=== PATIENT | female | born 1970 ===

== ENCOUNTER 2016-11-15 12:06 | Observation (INO) | payer MEDICAID ==
[2016-11-15 12:07] VITALS: BMI 32.8
--- NOTE | 2016-11-15 13:06 | ED PDOC ---
HPI: Chest Pain Time Seen by Provider: 11/15/16 12:22 Chief Complaint (Nursing): Chest Pain Chief Complaint (Provider): Chest Pain History Per: Patient History/Exam Limitations: no limitations Onset/Duration Of Symptoms: Hrs Current Symptoms Are (Timing): Still Present Severity: Mild Quality: Pressure, "Pain" Associated Symptoms: Dyspnea Modifying Factors: None Exacerbating Factors: None Alleviating Factors: None Additional Complaint(s): Patient is a 46 year old female with a history of HTN and CAD, presents to ED for evaluation of chest pain that began at 8pm. Patient is described as constant , anterior and left sided with SOB. Patient also reports upper back pain and headache that developed this morning with a mild dry cough. Denies leg swelling , palpations, dizziness or numbness. PMD: Past Medical History Reviewed: Historical Data, Nursing Documentation, Vital Signs Vital Signs: Last Vital Signs Temp Pulse 95 H 11/15/16 15:05 Resp 21 11/15/16 12:29 BP 128/71 11/15/16 12:29 Pulse Ox 100 11/15/16 15:05 - Medical History PMH: HTN Denies: Chronic Kidney Disease - Surgical History Surgical History: No Surg Hx - Family History Family History: States: Unknown Family Hx - Living Arrangements Living Arrangements: With Family - Home Medications Home Medications: Ambulatory Orders Medication Instructions Recorded amLODIPine [Norvasc] 10 mg PO DAILY 02/01/15 Alprazolam [Xanax] 1 tab PO PRN PRN 11/15/16 Aspirin [Aspirin Chewable] 1 tab PO DAILY 11/15/16 - Allergies Allergies/Adverse Reactions: Allergies Allergy/AdvReac Type Severity Reaction Status Date / Time No Known Allergies Allergy Verified 06/04/16 09:32 NISHI Risk Score for UA/NSTEMI - NISHI Risk Score Age > 64: NO 3 or more CAD Risk Factors: YES Known CAD (Stenosis greater than 50%): NO Aspirin use in past 7 days: YES Severe Angina: NO EKG ST changes greater than 0.5mm: NO Positive Cardiac Marker: NO NISHI Score: 2 Risk %: 8% Review of Systems ROS Statement: Except As Marked, All Systems Reviewed And Found Negative Constitutional: Negative for: Fever, Chills Cardiovascular: Positive for: Chest Pain Respiratory: Positive for: Cough, Shortness of Breath Gastrointestinal: Positive for: Nausea. Negative for: Vomiting Musculoskeletal: Positive for: Back Pain. Negative for: Neck Pain, Leg Pain Neurological: Positive for: Headache. Negative for: Weakness, Numbness, Dizziness Physical Exam - Reviewed Nursing Documentation Reviewed: Yes Vital Signs Reviewed: Yes - Physical Exam Appears: Positive for: Non-toxic, No Acute Distress Skin: Positive for: Normal Color, Warm Eye Exam: Positive for: Normal appearance, PERRL Neck: Positive for: Normal, Painless ROM Cardiovascular/Chest: Positive for: Regular Rate, Rhythm. Negative for: Chest Non Tender (mild left chest wall tenderness ), Murmur Respiratory: Positive for: Normal Breath Sounds. Negative for: Respiratory Distress Back: Positive for: Normal Inspection Extremity: Positive for: Normal ROM. Negative for: Pedal Edema, Calf Tenderness Neurologic/Psych: Positive for: Alert, Oriented. Negative for: Motor/Sensory Deficits - Laboratory Results Result Diagrams: 11/15/16 12:45 11/15/16 12:45 - ECG ECG: Positive for: Interpreted By Me, Viewed By Me ECG Rhythm: Positive for: Normal QRS, Normal ST Segment, Sinus Rhythm. Negative for: ST/T Changes Rate: 95 O2 Sat by Pulse Oximetry: 100 (RA) Pulse Ox Interpretation: Normal Medical Decision Making Medical Decision Making: Time: 1300 Initial impression: Chest pain r/o ACS Initial plan: Previous charts reviewed: History of NSTEMI with normal Cath by Dr. Bridges on February 02, 2016 -- EKG -- BMP -- Troponin -- CBC -- CXR -- ASA -- Cardiac Time:1500 Patient to be signed out to Dr. Lamas pending work up Scribe Attestation: Documented by Josette Muhammad acting as a scribe for Piper sOhea MD MD Scribe Attestation: All medical record entries made by the Scribe were at my direction and personally dictated by me. I have reviewed the chart and agree that the record accurately reflects my personal performance of the history, physical exam, medical decision making, and the department course for this patient. I have also personally directed, reviewed, and agree with the discharge instructions and disposition. Disposition - Clinical Impression Clinical Impression: Chest pain - Patient ED Disposition Is Patient to be Admitted: Transfer of Care - Disposition Disposition: Transfer of Care Disposition Time: 15:00 Condition: STABLE Patient Signed Over To: Everton Lamas Y Handoff Comments: pending CT chest.
[2016-11-15 13:13] LABS: BASO # 0.1 K/uL (0.0-0.2); EOS # 0.3 K/uL (0.0-0.7); EOS % 3.9 % (0.0-4.0); HEMATOCRIT 41.1 % (34.0-47.0); LYMPH # 2.7 K/uL (1.0-4.3); LYMPH % 36.7 % (20.0-40.0); MEAN CELL VOLUME 80.9 fl (81.0-99.0); MEAN CORPUSCULAR HEMOGLOBIN 26.1 pg (27.0-31.0); MEAN CORPUSCULAR HGB CONC 32.3 g/dL (33.0-37.0); MEAN PLATELET VOLUME 10.2 fl (7.2-11.7); MONO # 0.5 K/uL (0.0-0.8); MONO % 6.3 % (0.0-10.0); NEUT # 3.8 K/uL (1.8-7.0); NEUT % 52.1 % (50.0-75.0); NRBC % 0.1 % (0.0-0.0); RED CELL DISTRIBUTION WIDTH 14.3 % (11.5-14.5); WHITE BLOOD COUNT 7.3 K/uL (4.8-10.8)
[2016-11-15 13:23] LABS: BLOOD UREA NITROGEN 16 mg/dl (7-17); CALCIUM 9.7 mg/dL (8.4-10.2); CARBON DIOXIDE 26 mmol/L (22-30); CHLORIDE 101 mmol/L (98-107); GFR AFRICAN-AMERICAN > 60; GLUCOSE,RANDOM 176 mg/dL (65-105); SODIUM 142 mmol/l (132-148)
--- NOTE | 2016-11-15 13:32 | RAD ---
PROCEDURE: CHEST RADIOGRAPH, 1 VIEW HISTORY: Chest pain COMPARISON: 01/20/2016 FINDINGS: LUNGS: The lungs are clear. PLEURA: No pneumothorax or pleural fluid seen. CARDIOVASCULAR: Normal. OSSEOUS STRUCTURES: No significant abnormalities. VISUALIZED UPPER ABDOMEN: Normal. OTHER FINDINGS: None. IMPRESSION: No active pulmonary disease.
--- NOTE | 2016-11-15 15:41 | ED PDOC ---
- Laboratory Results Result Diagrams: 11/15/16 12:45 11/15/16 12:45 - ECG O2 Sat by Pulse Oximetry: 100 (RA) Medical Decision Making Medical Decision Makin:00 Patient signed out by Dr. Oshea pending CT and admission . 17:[address] Mohr, who is covering for Dr Guajardo, for admission. CT Scan r/o Dissection FINDINGS: CT ANGIOGRAPHY OF THE CHEST WITH & WITHOUT CONTRAST: AORTA (CHEST AND ABDOMEN): The thoracic and abdominal aorta are unremarkable, without aneurysm, dissection or rupture. No intramural thrombus identified in the thoracic aorta on the non-contrast ct of the chest. The celiac axis, superior mesenteric artery, inferior mesenteric artery and the renal arteries are widely patent. The pelvic arteries are unremarkable. LUNGS: Clear. No nodule, mass or consolidation. MEDIASTINUM: Unremarkable. Normal caliber aorta and pulmonary arterial trunk. No aortic dissection. Normal size heart. LYMPH NODES: Unremarkable. PLEURA: Unremarkable. No pneumothorax. No pleural fluid. BONES: Unremarkable. OTHER FINDINGS: None. CT ANGIOGRAPHY OF THE ABDOMEN AND PELVIS WITH CONTRAST: LIVER: Mild hepatomegaly with findings suggestive of moderate to mildly severe hepatic steatosis. GALLBLADDER AND BILE DUCTS: Unremarkable. PANCREAS: Unremarkable. No gross lesion or ductal dilatation. SPLEEN: Unremarkable. ADRENALS: Unremarkable. No mass. KIDNEYS AND URETERS: Unremarkable. No hydronephrosis. No solid mass. VASCULATURE: Unremarkable. No aortic aneurysm. STOMACH AND BOWEL: Unremarkable. No obstruction. No gross mural thickening. Mild constipation is noted APPENDIX: Normal appendix. PERITONEUM: Unremarkable. No free fluid. No free air. LYMPH NODES: Unremarkable. No enlarged lymph nodes. BLADDER: Unremarkable. REPRODUCTIVE: Unremarkable. BONES: No acute fracture. OTHER FINDINGS: None. IMPRESSION: No evidence of artery dissection. No evidence of aneurysm. No CT evidence of acute pathology in the chest abdomen and pelvis. Hepatomegaly associated with moderate steatosis. Scattered colonic diverticulosis seen without evidence of diverticulitis. 18:[address] Mohr, agreed to admit patient for cp. pt states cp has mostly resolved Scribe Attestation: Documented by Josette Muhammad acting as a scribe for Everton Lamas MD MD Scribe Attestation: All medical record entries made by the Scribe were at my direction and personally dictated by me. I have reviewed the chart and agree that the record accurately reflects my personal performance of the history, physical exam, medical decision making, and the department course for this patient. I have also personally directed, reviewed, and agree with the discharge instructions and disposition. Disposition Discussed With : Wilian Mohr Counseled Patient/Family Regarding: Studies Performed, Diagnosis - Clinical Impression Clinical Impression: Chest pain - POA Present On Arrival: None - Disposition Disposition: Admitted as In-Patient Disposition Time: 18:00 Condition: STABLE
[2016-11-15] MEDS ORDERED: Sodium Chloride 0.9% 50 ML IV ONE (15:59)
[2016-11-15] MEDS ORDERED: Iodixanol 320 MG/ML 100 ML BOTTLE IV ONE (15:59)
--- NOTE | 2016-11-15 17:14 | CT ---
PROCEDURE: CT Angiography Chest, Abdomen and Pelvis with and without intravenous contrast HISTORY: chest back pain COMPARISON: None. TECHNIQUE: Contiguous axial images of the chest, abdomen and pelvis were obtained in the phase of aortic enhancement. A noncontrast enhanced CT of the chest was also obtained to evaluate for possible intramural thrombus. Coronal and sagittal reformats were generated. This CT exam was performed using one or more of the following dose reduction techniques: Automated exposure control, adjustment of the mA and/or kV according to patient size, and/or use of the iterative reconstruction technique. IV dose administered: 95 mL Visipaque 320 Radiation dose: Total exam DLP = 1717.99 mGy-cm. FINDINGS: CT ANGIOGRAPHY OF THE CHEST WITH & WITHOUT CONTRAST: AORTA (CHEST AND ABDOMEN): The thoracic and abdominal aorta are unremarkable, without aneurysm, dissection or rupture. No intramural thrombus identified in the thoracic aorta on the non-contrast ct of the chest. The celiac axis, superior mesenteric artery, inferior mesenteric artery and the renal arteries are widely patent. The pelvic arteries are unremarkable. LUNGS: Clear. No nodule, mass or consolidation. MEDIASTINUM: Unremarkable. Normal caliber aorta and pulmonary arterial trunk. No aortic dissection. Normal size heart. LYMPH NODES: Unremarkable. PLEURA: Unremarkable. No pneumothorax. No pleural fluid. BONES: Unremarkable. OTHER FINDINGS: None. CT ANGIOGRAPHY OF THE ABDOMEN AND PELVIS WITH CONTRAST: LIVER: Mild hepatomegaly with findings suggestive of moderate to mildly severe hepatic steatosis. GALLBLADDER AND BILE DUCTS: Unremarkable. PANCREAS: Unremarkable. No gross lesion or ductal dilatation. SPLEEN: Unremarkable. ADRENALS: Unremarkable. No mass. KIDNEYS AND URETERS: Unremarkable. No hydronephrosis. No solid mass. VASCULATURE: Unremarkable. No aortic aneurysm. STOMACH AND BOWEL: Unremarkable. No obstruction. No gross mural thickening. Mild constipation is noted APPENDIX: Normal appendix. PERITONEUM: Unremarkable. No free fluid. No free air. LYMPH NODES: Unremarkable. No enlarged lymph nodes. BLADDER: Unremarkable. REPRODUCTIVE: Unremarkable. BONES: No acute fracture. OTHER FINDINGS: None. IMPRESSION: No evidence of artery dissection. No evidence of aneurysm. No CT evidence of acute pathology in the chest abdomen and pelvis. Hepatomegaly associated with moderate steatosis. Scattered colonic diverticulosis seen without evidence of diverticulitis.
--- NOTE | 2016-11-15 17:59 | CARD ---
APPROVED REPORT EKG Measurement Heart [id number] <Conclusion> Sinus rhythm with occasional premature ventricular complexes Otherwise normal ECG
[2016-11-15] MEDS ORDERED: Nitroglycerin 2% 15 INCH/30 GM TUBE TOP PRN ×2 (23:13→23:41)
[2016-11-16] MEDS ORDERED: Pneumococcal 23-Valent Vaccine IM ONE (09:00)
--- NOTE | 2016-11-16 14:04 | CP.PCM.DIS ---
Provider - Provider Date of Admission: 11/15/16 18:14 Attending physician: Wilian Mohr MD Time Spent in preparation of Discharge (in minutes): 20 Diagnosis - Discharge Diagnosis (1) Chest pain Status: Acute Hospital Course - Lab Results Lab Results: Most Recent Lab Values WBC 7.3 K/uL (4.8-10.8) 11/15/16 12:45 RBC 5.08 Mil/uL (3.80-5.20) 11/15/16 12:45 Hgb 13.3 g/dL (12.0-16.0) 11/15/16 12:45 Hct 41.1 % (34.0-47.0) 11/15/16 12:45 MCV 80.9 fl (81.0-99.0) L 11/15/16 12:45 MCH 26.1 pg (27.0-31.0) L 11/15/16 12:45 MCHC 32.3 g/dL (33.0-37.0) L 11/15/16 12:45 RDW 14.3 % (11.5-14.5) 11/15/16 12:45 Plt Count 216 K/uL (130-400) 11/15/16 12:45 MPV 10.2 fl (7.2-11.7) 11/15/16 12:45 Neut % (Auto) 52.1 % (50.0-75.0) 11/15/16 12:45 Lymph % (Auto) 36.7 % (20.0-40.0) 11/15/16 12:45 Luce % (Auto) 6.3 % (0.0-10.0) 11/15/16 12:45 Eos % (Auto) 3.9 % (0.0-4.0) 11/15/16 12:45 Baso % (Auto) 1.0 % (0.0-2.0) 11/15/16 12:45 Neut # 3.8 K/uL (1.8-7.0) 11/15/16 12:45 Lymph # 2.7 K/uL (1.0-4.3) 11/15/16 12:45 Luce # 0.5 K/uL (0.0-0.8) 11/15/16 12:45 Eos # 0.3 K/uL (0.0-0.7) 11/15/16 12:45 Baso # 0.1 K/uL (0.0-0.2) 11/15/16 12:45 Sodium 142 mmol/l (132-148) 11/15/16 12:45 Potassium 4.0 MMOL/L (3.6-5.0) 11/15/16 12:45 Chloride 101 mmol/L (98-107) 11/15/16 12:45 Carbon Dioxide 26 mmol/L (22-30) 11/15/16 12:45 Anion Gap 19 (10-20) 11/15/16 12:45 BUN 16 mg/dl (7-17) 11/15/16 12:45 Creatinine 0.7 mg/dL (0.7-1.2) 11/15/16 12:45 Est GFR ( Amer) > 60 11/15/16 12:45 Est GFR (Non-Af Amer) > 60 11/15/16 12:45 Random Glucose 176 mg/dL (65-105) H 11/15/16 12:45 Calcium 9.7 mg/dL (8.4-10.2) 11/15/16 12:45 Troponin I 0.0130 ng/mL (0.00-0.120) 11/16/16 06:25 - Hospital Course Hospital Course: Pt was admitted for observation for chest pain, cardiac enzymes negative. chest pain resolved. talked with pt she will need outpatient stress test; script given to her and she will obtain a referral from her PCP to get the test. will follow up with her PCP in 1-2weeks Discharge Exam - Head Exam Head Exam: NORMOCEPHALIC - Eye Exam Eye Exam: Normal appearance - Respiratory Exam Respiratory Exam: NORMAL BREATHING PATTERN - Cardiovascular Exam Cardiovascular Exam: REGULAR RHYTHM, +S1, +S2 - GI/Abdominal Exam GI & Abdominal Exam: Normal Bowel Sounds, Soft - Extremities Exam Extremities exam: full ROM, normal inspection - Neurological Exam Neurological exam: Alert, CN II-XII Intact, Oriented x3 - Skin Skin Exam: Normal Color Discharge Plan - Follow Up Plan Condition: STABLE Disposition: HOME/ ROUTINE Instructions: Cardiac Stress Test (GEN), Chest Pain (GEN) Additional Instructions: Please follow up with your PCP for referral for stress test
--- NOTE | 2016-11-16 14:06 | CP.PCM.HP ---
History of Present Illness - History of Present Illness History of Present Illness: Pt is a 46 year old female with a history of HTN and CAD, presents to ED for evaluation of chest pain that began at 8pm the night before Patient is described as constant, anterior and left sided with SOB. Patient also reports upper back pain and headache that developed this morning with a mild dry cough. Denies leg swelling, palpations, dizziness or numbness. Pt seen and examined at bedside, chest pain has now resolved, feels a lot comfortable does not have any complaints Present on Admission - Present on Admission Any Indicators Present on Admission: No Review of Systems - Review of Systems All systems: reviewed and no additional remarkable complaints except Review of Systems: Per HPI Past Patient History - Infectious Disease Hx of Infectious Diseases: None - Past Medical History & Family History Past Medical History?: Yes - Past Social History Smoking Status: Never Smoked - CARDIAC Hx Hypertension: Yes - PULMONARY Hx Respiratory Disorders: No - NEUROLOGICAL Hx Neurological Disorder: No - HEENT Hx HEENT Problems: No - RENAL Hx Chronic Kidney Disease: No - ENDOCRINE/METABOLIC Hx Endocrine Disorders: No - HEMATOLOGICAL/ONCOLOGICAL Hx Blood Disorders: No Hx AIDS: No Hx Human Immunodeficiency Virus (HIV): No - INTEGUMENTARY Hx Dermatological Problems: No - MUSCULOSKELETAL/RHEUMATOLOGICAL Hx Falls: No - GASTROINTESTINAL Hx Gastrointestinal Disorders: No - GENITOURINARY/GYNECOLOGICAL Hx Genitourinary Disorders: No - PSYCHIATRIC Hx Anxiety: Yes Hx Substance Use: No - SURGICAL HISTORY Hx Surgeries: Yes Hx Tubal Ligation: Yes Other/Comment: left shoulder surgery - ANESTHESIA Hx Anesthesia: Yes Hx Anesthesia Reactions: No Meds Allergies/Adverse Reactions: Allergies Allergy/AdvReac Type Severity Reaction Status Date / Time No Known Allergies Allergy Verified 06/04/16 09:32 Physical Exam - Constitutional Appears: Non-toxic, No Acute Distress - Head Exam Head Exam: NORMOCEPHALIC - Eye Exam Eye Exam: Normal appearance - ENT Exam ENT Exam: Mucous Membranes Moist - Respiratory Exam Respiratory Exam: Clear to Auscultation Bilateral, NORMAL BREATHING PATTERN - Cardiovascular Exam Cardiovascular Exam: REGULAR RHYTHM, +S1, +S2 - GI/Abdominal Exam GI & Abdominal Exam: Normal Bowel Sounds, Soft - Extremities Exam Extremities exam: Positive for: normal inspection - Skin Skin Exam: Normal Color Results - Vital Signs Recent Vital Signs: Last Vital Signs Temp 98.2 F 11/16/16 08:00 Pulse 76 11/16/16 09:00 Resp 20 11/16/16 08:00 BP 120/77 11/16/16 08:54 Pulse Ox 98 11/16/16 08:00 - Labs Result Diagrams: 11/15/16 12:45 11/15/16 12:45 Labs: Laboratory Results - last 24 hr 11/15/16 11/16/16 23:14 06:25 Troponin I < 0.0120 0.0130 Assessment & Plan (1) Chest pain Status: Acute - Assessment and Plan (Free Text) Assessment: Pt is a 46 y/o female with cardiac risk factor admitted for observation chest pain rule out ACS Plan: Chest pain rule out ACS 1 trops negative ; f/u up x2 continue aspirin pain mangement resume home meds heart healthy diet lovenox 40mg daily
[2016-11-16 14:48] VITALS: BP 110/73; PULSE 66; RESP 18; TEMP 97.9; O2SAT 97
== END 2016-11-16 15:20 | disposition home or self-care (01) ==
LOC: H.ER 12:06 → H.ERHOLD 18:14 → H.TEL 20:38
PROVIDERS: ADMIT Family Medicine; ATTEND Family Medicine
DX: R07.9 Chest pain, unspecified (principal); I10 Essential (primary) hypertension

== ENCOUNTER 2017-05-14 10:29 | Emergency (ER) | payer MEDICAID ==
[2017-05-14 11:06] VITALS: BMI 34.4
--- NOTE | 2017-05-14 12:46 | ED PDOC ---
HPI: Female Pain Time Seen by Provider: 05/14/17 11:40 Chief Complaint (Nursing): Abdominal Pain Chief Complaint (Provider): vaginal bleeding History Per: Patient History/Exam Limitations: no limitations Onset/Duration Of Symptoms: Days (x20) Additional Complaint(s): Sherry Cobian is a 47 year old female with previous medical history of hypertension and diabetes, who presents to the emergency department with a complaint of vaginal bleeding associated with blood clots and suprapubic pain ongoing for 20 days. Denied any fever, chills, chest pain, nausea, vomiting, dizziness or syncope. Patient stated she has an irregular menstrual cycle but concerned because of the blood clots and frequency of changing pads (6 pads/day) . PMD: none provided Past Medical History Reviewed: Historical Data, Nursing Documentation, Vital Signs Vital Signs: Last Vital Signs Temp 96 F L 05/14/17 11:05 Pulse 73 05/14/17 11:05 Resp 20 05/14/17 11:05 BP 127/78 05/14/17 11:05 Pulse Ox 100 05/14/17 11:05 - Medical History PMH: Anxiety, HTN Denies: HIV, Chronic Kidney Disease - Family History Family History: States: Unknown Family Hx - Social History Current smoker - smoking cessation education provided: No Ex-Smoker (has not smoked in the last 12 months): No Alcohol: None Drugs: Denies - Home Medications Home Medications: Ambulatory Orders Medication Instructions Recorded amLODIPine [Norvasc] 10 mg PO DAILY 02/01/15 Alprazolam [Xanax] 1 tab PO PRN PRN 11/15/16 Aspirin [Aspirin Chewable] 1 tab PO DAILY 11/15/16 - Allergies Allergies/Adverse Reactions: Allergies Allergy/AdvReac Type Severity Reaction Status Date / Time No Known Allergies Allergy Verified 06/04/16 09:32 Review of Systems ROS Statement: Except As Marked, All Systems Reviewed And Found Negative Constitutional: Negative for: Fever, Chills Cardiovascular: Negative for: Chest Pain Gastrointestinal: Positive for: Abdominal Pain (suprapubic). Negative for: Nausea, Vomiting Genitourinary Female: Positive for: Vaginal Bleeding (with blood clots) Neurological: Negative for: Dizziness (or syncope) Physical Exam - Reviewed Nursing Documentation Reviewed: Yes Vital Signs Reviewed: Yes - Physical Exam Appears: Positive for: Well, Non-toxic, No Acute Distress Head Exam: Positive for: ATRAUMATIC, NORMAL INSPECTION, NORMOCEPHALIC Skin: Positive for: Normal Color Eye Exam: Positive for: Normal appearance, EOMI, PERRL. Negative for: Nystagmus ENT: Positive for: Normal ENT Inspection Neck: Positive for: Normal Cardiovascular/Chest: Positive for: Regular Rate, Rhythm. Negative for: Chest Non Tender Respiratory: Positive for: Normal Breath Sounds, Accessory Muscle Use. Negative for: Decreased Breath Sounds, Respiratory Distress Gastrointestinal/Abdominal: Positive for: Normal Exam, Bowel Sounds, Soft. Negative for: Tenderness Back: Positive for: Normal Inspection. Negative for: L CVA Tenderness, R CVA Tenderness Extremity: Positive for: Normal ROM. Negative for: Tenderness, Pedal Edema, Calf Tenderness, Deformity Neurologic/Psych: Positive for: Alert, Oriented - Laboratory Results Result Diagrams: 05/14/17 12:40 05/14/17 12:40 - ECG O2 Sat by Pulse Oximetry: 100 (RA) Pulse Ox Interpretation: Normal Medical Decision Making Medical Decision Making: Initial Impression: Vaginal bleeding R/O dysfunctional uterine bleeding; fibroids Initial Plan: * BMP * Urine dipstick * CBC * US pelvis/transvag Time: 11:58 --UA: blood in urine; Otherwise, negative for . 15:13 Ultrasound was reviewed. Findings noted as follows: UTERUS: Measures 4.3 x 5.5 x 10 cm. Normal in size and appearance. No fibroid or other mass lesion seen. ENDOMETRIUM: Measures 14.0 mm in diameter. Thickened heterogeneous endometrium with trace fluid in the endometrial canal. CERVIX: No cervical abnormality identified.Incidental finding: Nabothian cysts RIGHT OVARY: Measures 1.9 x 2.7 x 3.2 cm. No solid mass. Normal flow. Simple cyst right adnexa 1.5 cm in diameter. LEFT OVARY: Obscured by overlying bowel gas. Non diagnostic assessment of left ovary. FREE FLUID: Fluid adjacent to the right adnexa, the pocket measures 1.3 x 0 4.0 cm. OTHER FINDINGS: None. IMPRESSION: 1. Thickened heterogeneous endometrial echo complex, trace fluid within the endometrial canal. 2. Mildly enlarged, heterogeneous uterus without focal abnormality. 3. Simple cyst right adnexa 4. Trace fluid adjacent the right ovary. Scribe Attestation: Documented by Jessie Doan and Delmy Sparrow, acting as scribes for Piper Oshea MD. Provider Scribe Attestation: All medical record entries made by the Scribe were at my direction and personally dictated by me. I have reviewed the chart and agree that the record accurately reflects my personal performance of the history, physical exam, medical decision making, and the department course for this patient. I have also personally directed, reviewed, and agree with the discharge instructions and disposition. Disposition - Clinical Impression Clinical Impression: DUB (dysfunctional uterine bleeding), Ovarian cyst - Patient ED Disposition Is Patient to be Admitted: No Doctor Will See Patient In The: Office Counseled Patient/Family Regarding: Studies Performed, Diagnosis, Need For Followup - Disposition Referrals: [facility] [Outside] Lalit Braun DO [Staff Provider] - Disposition: Routine/Home Disposition Time: 16:49 Condition: GOOD Additional Instructions: Follow up with principal technical architect in 2-3 days. Return for worsening. Instructions: Dysfunctional Uterine Bleeding (ED)
[2017-05-14 12:48] LABS: BASO # 0.1 K/uL (0.0-0.2); BASO % 0.8 % (0.0-2.0); EOS # 0.3 K/uL (0.0-0.7); EOS % 3.7 % (0.0-4.0); HEMATOCRIT 38.3 % (34.0-47.0); LYMPH # 2.7 K/uL (1.0-4.3); LYMPH % 32.8 % (20.0-40.0); MEAN CELL VOLUME 82.1 fl (81.0-99.0); MEAN CORPUSCULAR HEMOGLOBIN 26.4 pg (27.0-31.0); MEAN CORPUSCULAR HGB CONC 32.2 g/dL (33.0-37.0); MEAN PLATELET VOLUME 9.7 fl (7.2-11.7); MONO # 0.5 K/uL (0.0-0.8); MONO % 5.8 % (0.0-10.0); NEUT # 4.7 K/uL (1.8-7.0); NEUT % 56.9 % (50.0-75.0); RED CELL DISTRIBUTION WIDTH 14.6 % (11.5-14.5); WHITE BLOOD COUNT 8.3 K/uL (4.8-10.8)
[2017-05-14 13:12] LABS: BLOOD UREA NITROGEN 15 mg/dl (7-17); CALCIUM 9.1 mg/dL (8.4-10.2); CARBON DIOXIDE 25 mmol/L (22-30); CHLORIDE 103 mmol/L (98-107); GFR AFRICAN-AMERICAN > 60; GLUCOSE,RANDOM 115 mg/dL (65-105); POTASSIUM 4.4 MMOL/L (3.6-5.0); SODIUM 142 mmol/l (132-148)
--- NOTE | 2017-05-14 15:14 | US ---
HISTORY: vaginal bleeding suprapubic pain COMPARISON: 01/22/2016. TECHNIQUE: Transabdominal, transvaginal. Real -time technique with 2D, duplex and color Doppler. FINDINGS: UTERUS: Measures 4.3 x 5.5 x 10 cm. Normal in size and appearance. No fibroid or other mass lesion seen. ENDOMETRIUM: Measures 14.0 mm in diameter. Thickened heterogeneous endometrium with trace fluid in the endometrial canal. CERVIX: No cervical abnormality identified.Incidental finding: Nabothian cysts RIGHT OVARY: Measures 1.9 x 2.7 x 3.2 cm. No solid mass. Normal flow. Simple cyst right adnexa 1.5 cm in diameter. LEFT OVARY: Obscured by overlying bowel gas. Non diagnostic assessment of left ovary. FREE FLUID: Fluid adjacent to the right adnexa, the pocket measures 1.3 x 0 4.0 cm. OTHER FINDINGS: None. IMPRESSION: 1. Thickened heterogeneous endometrial echo complex, trace fluid within the endometrial canal. 2. Mildly enlarged, heterogeneous uterus without focal abnormality. 3. Simple cyst right adnexa 4. Trace fluid adjacent the right ovary.
[2017-05-14 16:59] VITALS: BP 132/75; PULSE 79; RESP 17; TEMP 97.9; O2SAT 94
== END 2017-05-14 16:57 | disposition home or self-care (01) ==
LOC: H.ER 10:29
DX: N93.8 Other specified abnormal uterine and vaginal bleeding (principal); N83.209 Unspecified ovarian cyst, unspecified side; E11.9 Type 2 diabetes mellitus without complications; F41.9 Anxiety disorder, unspecified; I10 Essential (primary) hypertension; Z79.82 Long term (current) use of aspirin

== ENCOUNTER 2017-09-28 09:15 | Emergency (ER) | payer MEDICAID ==
[2017-09-28 09:29] VITALS: BP 148/98; PULSE 74; RESP 16; TEMP 97.6; O2SAT 98
--- NOTE | 2017-09-28 09:51 | ED PDOC ---
HPI: Hypertension/Hypotension Time Seen by Provider: 09/28/17 09:35 History Per: Patient Onset/Duration Of Symptoms: Other (2 weeks) Current Symptoms Are (Timing): Still Present Associated Symptoms: Headache Severity: Mild Additional Complaint(s): Ran out of irbesartan 2 weeks ago only taking amlodipine. C/o headaches. Denies chest pain or dizziness Past Medical History Vital Signs: Last Vital Signs Temp 97.6 F 09/28/17 09:28 Pulse 74 09/28/17 09:28 Resp 16 09/28/17 09:28 BP 148/98 H 09/28/17 09:28 Pulse Ox 98 09/28/17 09:28 - Medical History PMH: Anxiety, HTN Denies: HIV, Chronic Kidney Disease - Family History Family History: States: Unknown Family Hx - Home Medications Home Medications: Ambulatory Orders Medication Instructions Recorded amLODIPine [Norvasc] 10 mg PO DAILY 02/01/15 Alprazolam [Xanax] 1 tab PO PRN PRN 11/15/16 Aspirin [Aspirin Chewable] 1 tab PO DAILY 11/15/16 Irbesartan 300 mg PO DAILY #30 tablet 09/28/17 amLODIPine [Norvasc] 5 mg PO DAILY #30 tab 09/28/17 - Allergies Allergies/Adverse Reactions: Allergies Allergy/AdvReac Type Severity Reaction Status Date / Time No Known Allergies Allergy Verified 06/04/16 09:32 Review of Systems ROS Statement: Except As Marked, All Systems Reviewed And Found Negative Cardiovascular: Negative for: Chest Pain Neurological: Positive for: Headache. Negative for: Weakness, Numbness Physical Exam - Physical Exam Appears: Positive for: Well, Non-toxic, No Acute Distress Head Exam: Positive for: ATRAUMATIC, NORMAL INSPECTION, NORMOCEPHALIC Skin: Positive for: Normal Color, Warm, DRY Cardiovascular/Chest: Positive for: Regular Rate, Rhythm Respiratory: Positive for: CNT, Normal Breath Sounds Extremity: Positive for: Normal ROM Neurologic/Psych: Positive for: Alert, Oriented. Negative for: Motor/Sensory Deficits - ECG O2 Sat by Pulse Oximetry: 98 Disposition - Clinical Impression Clinical Impression: Hypertension - Patient ED Disposition Is Patient to be Admitted: No - Disposition Referrals: [facility] [Outside] Disposition: Routine/Home Disposition Time: 10:10 Condition: FAIR Prescriptions: amLODIPine [Norvasc] 5 mg PO DAILY #30 tab Irbesartan 300 mg PO DAILY #30 tablet Instructions: Hypertension (ED) Print Language: WELSH
--- NOTE | 2017-09-28 14:35 | CARD ---
APPROVED REPORT EKG Measurement Heart [id number] MA [id number] [id number] <Conclusion> Normal sinus rhythm Normal ECG
== END 2017-09-28 10:16 | disposition home or self-care (01) ==
LOC: H.ER 09:15
DX: I10 Essential (primary) hypertension (principal); R51 Headache; F41.9 Anxiety disorder, unspecified; Z79.82 Long term (current) use of aspirin

== ENCOUNTER 2017-11-18 14:15 | Emergency (ER) | payer MEDICAID ==
[2017-11-18 14:15] VITALS: BMI 34.4
[2017-11-18 14:23] VITALS: BP 133/78; PULSE 70; RESP 18; TEMP 97.8; O2SAT 99
--- NOTE | 2017-11-18 14:54 | ED PDOC ---
HPI: Back Time Seen by Provider: 11/18/17 14:27 Chief Complaint (Nursing): Back Pain Chief Complaint (Provider): Back Pain History Per: Patient History/Exam Limitations: no limitations Onset/Duration Of Symptoms: Days (4) Current Symptoms Are (Timing): Still Present Additional Complaint(s): 47 y/o female with a pmhx of chronic back pain and HTN presents due to acute exacerbation of chronic back pain secondary to lumbar disc herniations x4 days. Patient states the pain worsened on Saturday and is exacerbated by movement. Also reports that pain radiates to LLE. Says her pain was unrelieved by 1 tab of Ibuprofen at 8am this morning. Patient reports her current symptoms are similar to prior episodes in the Past. Denies falls or traumas. Patient also denies fever, saddle anesthesia, weakness, numbness, urinary symptoms, abdominal pain, or chest pain. LMP: 6 months ago. Currently perimenopausal. PMD: Lila Guajardo Past Medical History Reviewed: Historical Data, Nursing Documentation, Vital Signs Vital Signs: Last Vital Signs Temp 97.8 F 11/18/17 14:20 Pulse 70 11/18/17 14:20 Resp 18 11/18/17 14:20 BP 133/78 11/18/17 14:20 Pulse Ox 99 11/18/17 14:20 - Medical History PMH: Anxiety, Back Problems, HTN Denies: HIV, Chronic Kidney Disease - Surgical History Other surgeries: Left shoulder - Family History Family History: States: Unknown Family Hx - Social History Current smoker - smoking cessation education provided: No Alcohol: None Drugs: Denies - Home Medications Home Medications: Ambulatory Orders Medication Instructions Recorded amLODIPine [Norvasc] 10 mg PO DAILY 02/01/15 Alprazolam [Xanax] 1 tab PO PRN PRN 11/15/16 Aspirin [Aspirin Chewable] 1 tab PO DAILY 11/15/16 Irbesartan 300 mg PO DAILY #30 tablet 09/28/17 amLODIPine [Norvasc] 5 mg PO DAILY #30 tab 09/28/17 Cyclobenzaprine [Cyclobenzaprine 10 mg PO Q8 PRN #12 tab 11/18/17 HCl] Meloxicam [Mobic] 15 mg PO DAILY #10 tab 11/18/17 - Allergies Allergies/Adverse Reactions: Allergies Allergy/AdvReac Type Severity Reaction Status Date / Time No Known Allergies Allergy Verified 06/04/16 09:32 Review of Systems ROS Statement: Except As Marked, All Systems Reviewed And Found Negative Cardiovascular: Negative for: Chest Pain Gastrointestinal: Negative for: Nausea, Vomiting, Abdominal Pain Genitourinary Female: Negative for: Dysuria, Frequency, Incontinence, Hematuria Musculoskeletal: Positive for: Back Pain, Leg Pain Neurological: Negative for: Weakness, Numbness Physical Exam - Reviewed Nursing Documentation Reviewed: Yes Vital Signs Reviewed: Yes - Physical Exam Comments: GENERAL APPEARANCE: Patient is awake, alert, oriented x 3, in no acute distress. SKIN: Warm, dry; (-) cyanosis. EYES: (-) conjunctival pallor. ENMT: Mucous membranes moist. NECK: Supple (-) tenderness, (-) stiffness CHEST AND RESPIRATORY: (-) rales, (-) rhonchi, (-) wheezes; breath sounds equal bilaterally. HEART AND CARDIOVASCULAR: (-) irregularity; (-) murmur, (-) gallop. ABDOMEN AND GI: Soft; (-) tenderness; (-) distention (-) guarding. (-) CVA tenderness bilaterally. BACK: (+) left paralumbar tenderness, (-) midline tenderness, (+) left sciatic notch tenderness EXTREMITIES: (-) deformity. Distal pulses good bilaterally. NEURO AND PSYCH: Mental status as above. Intact sensation bilaterally; normal strength in extension of the knees, plantar and dorsiflexion of the toes. Patient ambulatory in ER with steady, unassisted gait. - Laboratory Results Urine POC: Negative - ECG O2 Sat by Pulse Oximetry: 99 (RA) Pulse Ox Interpretation: Normal Medical Decision Making Medical Decision Making: Time: 14:48 Initial Impression: Acute on chronic back pain, radicular pain of left lower extremity/sciatica Plan: --Urine --Flexeril 10mg PO (Patient states she will not be driving home) --Toradol 60mg PO --Ultram 50mg PO --Reevaluation 1640 On re-evaluation, patient reports improvement of symptoms and remains ambulatory in ED with a steady gait. On exam, patient remains AAOx3, in no acute distress. Lungs clear to auscultation, cardiac RRR, abdomen soft, non- tender, repeat neuro exam shows no focal findings. VSS. Diagnosis of acute on chronic back pain, radicular pain of lower extremity d/w the patient. Based on history, exam and diagnostic results, plan will be for outpatient follow up. Patient instructed to follow-up with pmd / referral provided / the clinic in 1- 2 days without fail. Advised to take medication as prescribed. Return to the emergency room at any time for any new or worsening symptoms. Patient states she fully agrees with and understands discharge instructions. States that she agrees with the plan and disposition. Verbalized and repeated discharge instructions and plan. I have given the patient opportunity to ask any additional questions. Scribe Attestation: Documented by Terrance Muñiz, acting as a scribe for Sarah Garcia PA-C. Provider Scribe Attestation: All medical record entries made by the Scribe were at my direction and personally dictated by me. I have reviewed the chart and agree that the record accurately reflects my personal performance of the history, physical exam, medical decision making, and the department course for this patient. I have also personally directed, reviewed, and agree with the discharge instructions and disposition. Disposition - Clinical Impression Clinical Impression: Chronic back pain, Radicular pain of left lower extremity - Patient ED Disposition Is Patient to be Admitted: No Counseled Patient/Family Regarding: Diagnosis, Need For Followup, Rx Given - Disposition Referrals: Lila Guajardo MD [Staff Provider] - Disposition: Routine/Home Disposition Time: 16:43 Condition: STABLE Prescriptions: Cyclobenzaprine [Cyclobenzaprine HCl] 10 mg PO Q8 PRN #12 tab PRN Reason: Muscle Spasm Meloxicam [Mobic] 15 mg PO DAILY #10 tab Instructions: Low Back Pain in Adults, Sciatica Exercises, Radiculopathy Forms: [employer] (Bruneian) Print Language: MALAY - POA Present On Arrival: None
== END 2017-11-18 17:29 | disposition home or self-care (01) ==
LOC: H.ER 14:15
DX: M54.9 Dorsalgia, unspecified (principal); M79.605 Pain in left leg; G89.29 Other chronic pain; F41.9 Anxiety disorder, unspecified; I10 Essential (primary) hypertension; Z79.82 Long term (current) use of aspirin
CPT/HCPCS: 81025; 96372; 99283; J1885

== ENCOUNTER 2018-05-15 10:22 | Observation (INO) | payer MEDICAID ==
[2018-05-15 10:23] VITALS: BMI 34.4
--- NOTE | 2018-05-15 10:56 | ED PDOC ---
HPI:STROKE - Time Time: 10:55 - Historian Historian: Patient, Family - Chief Complaint Chief Complaint: Numbness - Onset Date: 05/01/18 Time: 15:00 - Timing Timing: Currently Symptomatic - TPA Positive for Contraindication: Yes Reason tPA is not being Administered: out of window - Notes: Notes:: Pt. with left sided numbness and tingles in the leg and arm. No weakness. No chest pain, headaches, dizziness, neck pain. Ambulated with no issues. Tolerates po. NIHSS Stroke Scale - Date/Time Evaluation Performed Date Performed: 05/15/18 Time Performed: 11:07 When Was NIHSS Performed: Baseline - How Severe is the Stroke Level of Consciousness: 0=Alert LOC to Questions: 0=Both comments correct LOC to commands: 0=Obeys both correctly Best Gaze: 0=Normal Visual: 0=No visual loss Facial: 0=Normal Motor Arm - Left: 0=No drift Motor Arm - Right: 0=No drift Motor Leg - Left: 0=No drift Motor Leg - Right: 0=No drift Limb Ataxia: 0=Absent Sensory: 0=Normal Best Language: 0=No aphasia Dysarthia: 0=Normal articulation Extinction & Inattention (Neglect): 0=Normal, no object Score: 0 rTPA Inclusion/Exclusion - Refusal of Treatment Patient Refused Treatment: No - Inclusion Criteria for Altepase Patient is 18 years or Older: Yes The Clinical Diagnosis of Ischemic Stroke That is Causing a Potentially Disabling Neurological Deficit: No Time of Onset is Well Established to be Less Than 270 Minute Before Treatment Would Begin: No Risk/Benefit Discussed With Patient/Family Member Present: No Past Medical History Reviewed: Nursing Documentation, Vital Signs - Medical History PMH: Anxiety, Back Problems, Diabetes, HTN Denies: HIV, Chronic Kidney Disease - Family History Family History: States: Unknown Family Hx - Living Arrangements Living Arrangements: With Family - Home Medications Home Medications: Ambulatory Orders Medication Instructions Recorded amLODIPine [Norvasc] 10 mg PO DAILY 02/01/15 Alprazolam [Xanax] 1 tab PO PRN PRN 11/15/16 Aspirin [Aspirin Chewable] 1 tab PO DAILY 11/15/16 Irbesartan 300 mg PO DAILY #30 tablet 09/28/17 amLODIPine [Norvasc] 5 mg PO DAILY #30 tab 09/28/17 Cyclobenzaprine [Cyclobenzaprine 10 mg PO Q8 PRN #12 tab 11/18/17 HCl] Meloxicam [Mobic] 15 mg PO DAILY #10 tab 11/18/17 - Allergies Allergies/Adverse Reactions: Allergies Allergy/AdvReac Type Severity Reaction Status Date / Time No Known Allergies Allergy Verified 06/04/16 09:32 Review of Systems ROS Statement: Except As Marked, All Systems Reviewed And Found Negative Neurological: Positive for: Numbness Physical Exam - Reviewed Nursing Documentation Reviewed: Yes Vital Signs Reviewed: Yes - Physical Exam Appears: Positive for: Non-toxic, No Acute Distress Head Exam: Positive for: ATRAUMATIC, NORMAL INSPECTION, NORMOCEPHALIC Skin: Positive for: Normal Color, Warm, DRY Eye Exam: Positive for: EOMI, Normal appearance, PERRL ENT: Positive for: Normal ENT Inspection Neck: Positive for: Normal, Painless ROM Cardiovascular/Chest: Positive for: Regular Rate, Rhythm Respiratory: Positive for: CNT, Normal Breath Sounds Gastrointestinal/Abdominal: Positive for: Normal Exam, Soft. Negative for: Tenderness Back: Positive for: Normal Inspection. Negative for: L CVA Tenderness, R CVA Tenderness Extremity: Positive for: Normal ROM. Negative for: Tenderness, Pedal Edema Neurologic/Psych: Positive for: Alert, life insurance agent II-XII, Oriented. Negative for: Motor/Sensory Deficits, Aphasia, Facial Droop - Laboratory Results Result Diagrams: 05/15/18 11:05 05/15/18 11:05 Interpretation Of Abn Labs: no acute - ECG ECG: Positive for: Interpreted By Me, Viewed By Me ECG Rhythm: Positive for: Normal QRS, Normal ST Segment, Sinus Rhythm - Radiology X-Ray: Read By Radiologist X-Ray Interpretation: No Acute Disease - CT Scan/US ct Other Rad Studies (CT/US): Read By Radiologist Other Rad Interpretation: no acute - Progress ED Course And Treament: 1436: Stable. AAOx3. Pain free. Spoke with Dr. Mohr. Will admit for paresthesias. Disposition - Clinical Impression Clinical Impression: Paresthesia - Patient ED Disposition Is Patient to be Admitted: Yes Counseled Patient/Family Regarding: Studies Performed, Diagnosis - Disposition Disposition Time: 14:00 Condition: FAIR - Pt Status Changed To: Hospital Disposition Of: Observation - POA Present On Arrival: None
[2018-05-15] MEDS: Sodium Chloride 0.9% 1,000 ML IV SCH ×2 (11:13→23:08)
[2018-05-15 11:22] LABS: BASO # 0.1 K/uL (0.0-0.2); BASO % 0.9 % (0.0-2.0); EOS # 0.4 K/uL (0.0-0.7); EOS % 4.4 % (0.0-4.0); HEMOGLOBIN 12.9 g/dL (12.0-16.0); LYMPH # 2.5 K/uL (1.0-4.3); LYMPH % 28.3 % (20.0-40.0); MEAN CELL VOLUME 79.4 fl (81.0-99.0); MEAN CORPUSCULAR HEMOGLOBIN 26.3 pg (27.0-31.0); MEAN CORPUSCULAR HGB CONC 33.1 g/dL (33.0-37.0); MEAN PLATELET VOLUME 9.5 fl (7.2-11.7); MONO # 0.5 K/uL (0.0-0.8); MONO % 5.6 % (0.0-10.0); NEUT # 5.3 K/uL (1.8-7.0); NEUT % 60.8 % (50.0-75.0); NRBC % 0.1 % (0.0-0.0); RBC 4.89 Mil/uL (3.80-5.20); RED CELL DISTRIBUTION WIDTH 14.4 % (11.5-14.5); WHITE BLOOD COUNT 8.7 K/uL (4.8-10.8)
[2018-05-15 11:32] LABS: PROTHROMBIN TIME 11.3 Seconds (9.8-13.1)
[2018-05-15 11:34] LABS: ALB/GLOB RATIO 1.1 (1.0-2.1); ALBUMIN 4.2 g/dL (3.5-5.0); AST/SGOT 25 U/L (14-36); BLOOD UREA NITROGEN 19 mg/dl (7-17); CALCIUM 9.9 mg/dL (8.4-10.2); GFR NON-AFRICAN AMERICAN > 60; HDL CHOLESTEROL 64 MG/DL (30-70)
[2018-05-15 11:35] LABS: ALT/SGPT 30 U/L (9-52); PARTIAL THROMBOPLASTIN TIME 32.2 Seconds (25.6-37.1)
[2018-05-15 11:44] LABS: LDL CHOLESTEROL 101 mg/dL (0-129)
--- NOTE | 2018-05-15 12:53 | RAD ---
Date of service: 05/15/2018 HISTORY: stroke eval COMPARISON: 11/15/2016 FINDINGS: LUNGS: No active pulmonary disease. PLEURA: No significant pleural effusion identified, no pneumothorax apparent. CARDIOVASCULAR: Normal. OSSEOUS STRUCTURES: No significant abnormalities. VISUALIZED UPPER ABDOMEN: Normal. OTHER FINDINGS: None. IMPRESSION: No active disease.
--- NOTE | 2018-05-15 13:54 | CT ---
Date of service: 05/15/2018 PROCEDURE: CT HEAD WITHOUT CONTRAST. HISTORY: stroke eval COMPARISON: CT head dated 06/04/2016 TECHNIQUE: Axial computed tomography images were obtained through the head/brain without intravenous contrast. Radiation dose: Total exam DLP = 717.4 mGy-cm. This CT exam was performed using one or more of the following dose reduction techniques: Automated exposure control, adjustment of the mA and/or kV according to patient size, and/or use of iterative reconstruction technique. FINDINGS: HEMORRHAGE: No intracranial hemorrhage. BRAIN: No mass effect or edema. No atrophy or chronic microvascular ischemic changes. VENTRICLES: Unremarkable. No hydrocephalus. CALVARIUM: Unremarkable. PARANASAL SINUSES: Unremarkable as visualized. No significant inflammatory changes. MASTOID AIR CELLS: Unremarkable as visualized. No inflammatory changes. OTHER FINDINGS: None. IMPRESSION: No acute intracranial pathology.
--- NOTE | 2018-05-15 14:32 | CARD ---
APPROVED REPORT Date of service: 05/15/2018 EKG Measurement Heart [id number] <Conclusion> Normal sinus rhythm Normal ECG
[2018-05-15] MEDS ORDERED: Albuterol HFA 90 mcg/actuation (8 g) IH PRN (17:03)
[2018-05-15] MEDS ORDERED: Pneumococcal 23-Valent Vaccine IM ONE (18:38)
[2018-05-15 23:53] VITALS: RESP 18
[2018-05-16 05:02] VITALS: O2SAT 100
[2018-05-16 08:56] VITALS: BP 123/74; PULSE 68; TEMP 97.6
[2018-05-16] MEDS ORDERED: Patient's Own Med (Alogliptin Benz/Metformin Hcl [Alogliptin-Metformin 12.5-1000] 1 TAB) PO SCH (09:00)
--- NOTE | 2018-05-16 13:59 | CP.PCM.HP ---
History of Present Illness - History of Present Illness History of Present Illness: Pt is a 48 y/o female with hx of known chronic back pain secondary to Lumbar Spondylolisthesis, HTN, NIDDM presents to ED with complaints of numbness and burning along her left inner thigh and left gluteal with radiation down to her knees as well as left shoulder down to elbow x 1 day. States that she has had this pain for 3 weeks now but it is usually short lived, however now it has persisted all day. Triggering factors include standing for long periods. Denies los of bowel/bladder, weight loss, night sweats, fevers, motor weakness, dysarthria, blurry vision, headache, dizziness or gait instability. Reports that she has been seen by a by a doctor for her back pain who recommended surgical intervention but she is still undecided. 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, non smoker ED Course: Head CT- no acute changes CBC, CMP, UA unremarkable Present on Admission - Present on Admission Any Indicators Present on Admission: No Past Patient History - Infectious Disease Hx of Infectious Diseases: None - Past Medical History & Family History Past Medical History?: Yes - Past Social History Smoking Status: Never Smoked - CARDIAC Hx Hypertension: Yes - PULMONARY Hx Respiratory Disorders: No - NEUROLOGICAL Hx Neurological Disorder: No - HEENT Hx HEENT Problems: No - RENAL Hx Chronic Kidney Disease: No - ENDOCRINE/METABOLIC Hx Diabetes Mellitus Type 2: Yes - HEMATOLOGICAL/ONCOLOGICAL Hx Human Immunodeficiency Virus (HIV): No - INTEGUMENTARY Hx Dermatological Problems: No - MUSCULOSKELETAL/RHEUMATOLOGICAL Hx Back Pain: Yes (Herniated disk X2) Hx Falls: Yes Hx Herniated Disk: Yes - GASTROINTESTINAL Hx Gastrointestinal Disorders: No - GENITOURINARY/GYNECOLOGICAL Hx Genitourinary Disorders: No - PSYCHIATRIC Hx Anxiety: Yes Hx Substance Use: No - SURGICAL HISTORY Hx Surgeries: Yes Hx Tubal Ligation: Yes Other/Comment: left shoulder surgery - ANESTHESIA Hx Anesthesia: Yes Hx Anesthesia Reactions: No Meds Allergies/Adverse Reactions: Allergies Allergy/AdvReac Type Severity Reaction Status Date / Time No Known Allergies Allergy Verified 06/04/16 09:32 Physical Exam - Constitutional Appears: No Acute Distress - Head Exam Head Exam: NORMAL INSPECTION - Eye Exam Eye Exam: Normal appearance, PERRL. absent: Nystagmus - ENT Exam ENT Exam: Mucous Membranes Moist, Normal Oropharynx - Neck Exam Neck exam: Positive for: Full Rom, Normal Inspection. Negative for: Lymphadenopathy, Meningismus, Thyromegaly - Respiratory Exam Respiratory Exam: Clear to Auscultation Bilateral. absent: Rales, Wheezes - Cardiovascular Exam Cardiovascular Exam: REGULAR RHYTHM, +S1, +S2. absent: Systolic Murmur - GI/Abdominal Exam GI & Abdominal Exam: Normal Bowel Sounds, Soft. absent: Tenderness - Extremities Exam Extremities exam: Positive for: full ROM, normal capillary refill, normal inspection. Negative for: calf tenderness, joint swelling, pedal edema, tenderness, pedal pulses present Additional comments: Straight leg test negative Results - Vital Signs Recent Vital Signs: Last Vital Signs Temp 97.6 F 05/16/18 08:55 Pulse 68 05/16/18 09:22 Resp 18 05/16/18 09:00 BP 123/74 05/16/18 09:22 Pulse Ox 100 05/16/18 09:00 - Labs Result Diagrams: 05/15/18 11:05 05/15/18 11:05 Labs: Laboratory Results - last 24 hr 05/15/18 05/15/18 05/15/18 11:05 15:50 21:10 POC Glucose (mg/dL) 148 H Hemoglobin A1c 7.0 H TSH 3rd Generation 1.61 05/16/18 05/16/18 05:10 11:00 POC Glucose (mg/dL) 124 H 151 H Hemoglobin A1c TSH 3rd Generation Assessment & Plan - Assessment and Plan (Free Text) Assessment: Pt is a 48 y/o female with hx of known chronic back pain secondary to Lumbar Spondylolisthesis, HTN, NIDDM presents to ED with complaints of parasthesia suggestive of radiculopathy. #Paresthesias -Acute CVA ruled out; Dermatomal distribution of neuropathy suggests lumbar radiculopathy -On TELE monitor for observation overnight -Tylenol x1 for pain -S/P ASA in ED Discussed case with Dr. Onur Mathis, PGY2
--- NOTE | 2018-05-16 16:00 | CP.PCM.PCO ---
Physician Communication Note - Physician Communication Note Physician Communication Note: Pt re-assessed in am w/ Dr. Mohr. Denies pain. Clear for discharge
== END 2018-05-16 12:25 | disposition home or self-care (01) ==
LOC: H.ER 10:22 → H.ERHOLD 14:39 → H.TEL 17:38
PROVIDERS: ADMIT Family Medicine; ATTEND Family Medicine
DX: M54.16 Radiculopathy, lumbar region (principal); F41.9 Anxiety disorder, unspecified; E11.9 Type 2 diabetes mellitus without complications; I10 Essential (primary) hypertension; G89.29 Other chronic pain; M43.16 Spondylolisthesis, lumbar region
CPT/HCPCS: 70450; 71045; 80053; 80061; 81025; 82948; 83036; 84443; 84484; 84702; 85025; 85610; 85730; 86850; 86900; 93005; 99285; G0378; J7030

== ENCOUNTER 2018-11-27 09:50 | Emergency (ER) | payer MEDICAID ==
[2018-11-27 10:20] VITALS: RESP 18; O2SAT 95; BMI 32.2
--- NOTE | 2018-11-27 11:53 | ED PDOC ---
HPI: Pediatric General Time Seen by Provider: 11/27/18 11:08 Chief Complaint (Nursing): ENT Problem Chief Complaint (Provider): sore throat History Per: Patient History/Exam Limitations: no limitations Additional Complaint(s): 48 y/o F with HTN, DM who presents with sore throat since yesterday. Pt also states that she has body aches and [place] as well as a subjective fever last night. Denies N/V, diarrhea, ear pain. She has been unable to swallow more than a sip of water today due to throat pain and feels very weak. States that her daughter is starting to have similar symptoms. She received INfluenza vaccine this seas on. Past Medical History Reviewed: Historical Data, Nursing Documentation, Vital Signs Vital Signs: Last Vital Signs Temp 98.5 F 11/27/18 10:39 Pulse 101 H 11/27/18 10:39 Resp 18 11/27/18 10:39 BP 121/74 11/27/18 10:39 Pulse Ox 95 11/27/18 10:39 - Medical History PMH: Anxiety, Back Problems, Diabetes, HTN Denies: HIV, Chronic Kidney Disease - Family History Family History: States: Unknown Family Hx - Home Medications Home Medications: Ambulatory Orders Medication Instructions Recorded Albuterol Sulfate [Ventolin Hfa] 2 puff IH Q6 PRN 05/15/18 Alogliptin Jerry/Metformin HCl 1 tab PO BID 05/15/18 [Alogliptin-Metformin 12.5-1000] Ascorbic Acid/Collagen Hydr 1 cap PO DAILY 05/15/18 [Collagen Plus Vit C Capsule] Aspirin [Ecotrin] 81 mg PO HS 05/15/18 Biotin [Garret Biotin] 1 cap PO DAILY 05/15/18 Ibuprofen [Motrin Tab] 800 mg PO Q8 PRN 05/15/18 Irbesartan [Avapro] 300 mg PO DAILY 05/15/18 Loratadine [Claritin] 10 mg PO DAILY PRN 05/15/18 amLODIPine [Norvasc] 5 mg PO DAILY 05/15/18 Ibuprofen [Motrin Tab] 600 mg PO Q6 PRN 7 Days tab 11/27/18 - Allergies Allergies/Adverse Reactions: Allergies Allergy/AdvReac Type Severity Reaction Status Date / Time No Known Allergies Allergy Verified 11/27/18 10:38 Review of Systems Constitutional: Positive for: Fever ENT: Positive for: Throat Pain. Negative for: Nose Discharge Cardiovascular: Negative for: Chest Pain Respiratory: Positive for: Cough. Negative for: Shortness of Breath Gastrointestinal: Negative for: Nausea, Vomiting Physical Exam - Reviewed Nursing Documentation Reviewed: Yes Vital Signs Reviewed: Yes - Physical Exam Appears: Positive for: Uncomfortable ENT: Positive for: TM Is/Are (normal B/L), Pharyngeal Erythema (mild), Tonsillar Exudate, Tonsillar Swelling (mild). Negative for: Sinus Pain/Drainage Cardiovascular/Chest: Positive for: Regular Rate, Rhythm Respiratory: Positive for: Normal Breath Sounds Gastrointestinal/Abdominal: Positive for: Normal Exam Neurological/Psych: Positive for: Awake, Alert, Oriented - ECG O2 Sat by Pulse Oximetry: 95 Medical Decision Making Medical Decision Making: Rapid Strep [place] Rapid flu NS 1L IV X 1 Benzathine PCN IM x 1 Decadron 10mg IM x 1 Ibuprofen 600mg PO x 1 Patient advised that + for [place]. Treated for Strep so if throat cultures return +, no further treatment indicated. Natural course of Infectious Mononucleosis discussed. patient demonstrated understanding. Return instructions given. Stable for d/c home. Disposition - Clinical Impression Clinical Impression: Mononucleosis - Patient ED Disposition Is Patient to be Admitted: No Counseled Patient/Family Regarding: Studies Performed, Diagnosis, Need For Followup, Rx Given - Disposition Referrals: Lino Solomon MD [Medical Doctor] - Disposition: Routine/Home Disposition Time: 15:12 Condition: IMPROVED Additional Instructions: Follow up with your primary care doctor for persistent symptoms. Take Ibuprofen or Tylenol for pain. Avoid sharing cups, utensils or kissing anyone as [place] is transmitted in saliva. Return to ER if your symptoms worsen. If your throat culture returns + for Strep, you have already been treated and no further antibiotics are required. Avoid trauma to abdomen as your spleen may be enlarged due to [place]. Your symptoms will take several weeks to resolve. Prescriptions: Ibuprofen [Motrin Tab] 600 mg PO Q6 PRN 7 Days tab PRN Reason: Pain, Moderate (4-7) Instructions: Mononucleosis (DC) Forms: [employer] (Georgian) Print Language: UZBEK
[2018-11-27] MEDS ORDERED: Penicillin G Benzathine 1.2 Mill Unit/2 ml Syr IM STA (12:10)
[2018-11-27] MEDS ORDERED: Dexamethasone 10 MG in Sodium Chloride 0.9% 50 ML IV STA (12:14)
[2018-11-27] MEDS ORDERED: Sodium Chloride 0.9% 1,000 ML IV STA (12:14)
[2018-11-27 15:14] VITALS: BP 128/78; PULSE 78; TEMP 98
== END 2018-11-27 15:12 | disposition home or self-care (01) ==
LOC: H.ER 09:50
DX: B27.90 Infectious mononucleosis, unspecified without complication (principal); E11.9 Type 2 diabetes mellitus without complications; F41.9 Anxiety disorder, unspecified; I10 Essential (primary) hypertension; Z79.84 Long term (current) use of oral hypoglycemic drugs
CPT/HCPCS: 81025; 86308; 87070; 87430; 87804; 96372; 99283; J0561; J1100; J7030